=== PATIENT | female | born 1950 | race Two or more races ===

== ENCOUNTER 2016-08-19 09:00 | Emergency (ER) | payer MEDICARE, MEDICAID ==
[~2016-08-19] VITALS: Ht 162.6 cm; Wt 59.0 kg
[~2016-08-19 09:00] MED LIST: ALBUTEROL2.5 MG/3 M HHN; MOBIC15 MG ORAL; NORCO 5-325 TA1 EACH ORAL; PREDNISONE20 MG ORAL
[2016-08-19] MEDS ORDERED: Albuterol ud Inhalation HHN ONE (09:30)
[2016-08-19] MEDS ORDERED: Solu-MEDROL 125mg Inj IVP ONE (09:30)
[2016-08-19] MEDS ORDERED: Ipratropium 0.02% Inh Soln 2.5ml UD HHN ONE (09:30)
[2016-08-19 09:38] LABS: EOSINOPHILS % (AUTO) 1.3 % (0.0-3.0); MEAN CORPUSCULAR HEMOGLOBIN 29.6 PG (27.0-31.0); MEAN CORPUSCULAR HGB CONC 32.7 G/DL (32.0-36.0); MEAN CORPUSCULAR VOLUME 91 FL (80-99); MEAN PLATELET VOLUME 11.5 FL (6.5-10.1); MONOCYTES % (AUTO) 7.1 % (1.0-10.0); NEUTROPHILS % (AUTO) 76.6 % (45.0-75.0); PLATELET COUNT 144 K/UL (150-450); WHITE BLOOD COUNT 8.9 K/UL (4.8-10.8)
[2016-08-19] MEDS ORDERED: Ketorolac 30mg Inj IV ONE (09:45)
[2016-08-19] MEDS: Acetaminophen 500mg (ES) tab ORAL ONE ×2 (09:45→10:50)
[2016-08-19 09:50] LABS: ALANINE AMINOTRANSFERASE 16 U/L (3-33); ALBUMIN/GLOBULIN RATIO 1.4 (1.0-2.7); ANION GAP 15 (5-15); ASPARTATE AMINO TRANSFERASE 33 U/L (5-40); CALCIUM 9.1 mg/dL (8.6-10.2); CARBON DIOXIDE 25 mEQ/L (20-30); CHLORIDE 97 mEQ/L (98-107); CREATININE 0.8 mg/dL (0.5-0.9); GLOMERULAR FILTRATION RATE > 60 mL/min (>60); HEMOLYSIS 115; POTASSIUM 4.8 mEQ/L (3.4-4.9); SODIUM 137 mEQ/L (135-145); TOTAL PROTEIN 7.1 g/dL (6.6-8.7); TROPONIN I < 0.30 ng/mL (<=0.30)
[2016-08-19 09:54] VITALS: BP 133/65
[2016-08-19 10:00] LABS: CKMB 1.8 ng/mL (< 3.8)
[2016-08-19 10:21] VITALS: BP 113/58
[2016-08-19] MEDS ORDERED: Morphine Sulfate 4mg/ml Inj ONE (10:41)
[2016-08-19] MEDS ORDERED: PROMETHAZINE-D118 ML ORAL (10:50)
[2016-08-19] MEDS ORDERED: ALBUTEROL SULF8.5 GM INH (10:50)
[2016-08-19] MEDS ORDERED: ALBUTEROL2.5 MG/3 M HHN (10:50)
[2016-08-19] MEDS ORDERED: CYCLOBENZAPRINE10 MG ORAL (10:50)
[2016-08-19] MEDS ORDERED: PREDNISONE20 MG ORAL (10:50)
[2016-08-19 10:55] VITALS: BP 113/58
[2016-08-19] MEDS ORDERED: Morphine Sulfate 4mg/ml Inj IVP ONE (11:00)
--- NOTE | 2016-08-19 12:37 | Diagnostic Imaging Report ---
Indication: Chest pain Technique: One view of the chest Comparison: 07/13/2015 Findings: No acute infiltrates, effusions, or congestion. Tortuous calcified aorta. Normal heart size. Upper mediastinum unremarkable. No significant change Impression: No acute process.
--- NOTE | 2016-08-19 13:38 | Emergency Room Report ---
History of Present Illness General Chief Complaint: Upper Respiratory Illness Source: Patient Present Illness HPI 65-year-old female presents ED complaining of cough and bodyaches. States symptoms started 2 days ago. Was seen by her PCP and was prescribed Levaquin. States persistent cough and bodyaches. Pain is a 10 out of 10. Throbbing. Nonradiating. Notes cough with greenish sputum. Denies shortness of breath. Notes history of asthma. Denies sick contacts or recent travel. No aggravating or relieving factors. Denies any other associated symptoms Allergies: Coded Allergies: No Known Allergies (Unverified , 07/13/15) Patient History Past Medical History: none Past Surgical History: none Pertinent Family History: none Social History: Denies: alcohol use, drug use, smoking Now: No Immunizations: UTD Reviewed Nursing Documentation: PMH: Agreed, PSxH: Agreed Nursing Documentation-PMH Past Medical History: No Stated History Review of Systems All Other Systems: negative except mentioned in HPI Physical Exam Vital Signs Date Time Temp Pulse Resp B/P Pulse Ox O2 Delivery O2 Flow Rate FiO2 08/19/16 09:07 97.2 94 18 133/65 100 Room Air Sp02 EP Interpretation: reviewed, normal General Appearance: no apparent distress, alert, GCS 15, non-toxic Head: normocephalic Eyes: bilateral eye PERRL, bilateral eye normal inspection ENT: normal ENT inspection Neck: normal inspection Respiratory: wheezing Cardiovascular #1: regular rate, rhythm, no edema Gastrointestinal: normal inspection Rectal: deferred Genitourinary: no CVA tenderness Musculoskeletal: normal inspection Neurologic: alert, oriented x3, responsive, motor strength/tone normal, sensory intact, speech normal Psychiatric: normal inspection Skin: normal inspection Lymphatic: normal inspection Medical Decision Making Diagnostic Impression: Primary Impression: Bronchitis ER Course Hospital Course 65-year-old female presents to ED complaining of bodyaches, cough Differential diagnoses include: URI, bronchitis, asthma/COPD, pneumonia Clinical course Patient placed on stretcher. After initial history, physical exam reveals an elderly female in no acute distress. Bilateral TM unremarkable. No pharyngeal erythema. No tonsillar exudates. No lymphadenopathy. wheezing I ordered labs, IV fluids, Toradol, chest x-ray, nebulizer treatments Labs reviewed- no leukocytosis noted, hemoglobin/hematocrit stable, electrolytes okay Chest x-ray shows no acute process EKG- NSR, no acute c/w bronchitis. Per curb-65 criteria, patient does not require admission. Patient can be safely discharged to home with outpatient therapy. Patient agrees with plan. She will complete her Levaquin prescription Diagnosis - bronchitis Stable and discharged home with prescriptions for albuterol, prednisone, cough syrup. Instructed to followup with PMD. Return to ED if symptoms recur or worsen Labs Test 08/19/16 09:20 White Blood Count 8.9 K/UL (4.8-10.8) Red Blood Count 5.10 M/UL (4.20-5.40) Hemoglobin 15.1 G/DL (12.0-16.0) Hematocrit 46.2 % (37.0-47.0) Mean Corpuscular Volume 91 FL (80-99) Mean Corpuscular Hemoglobin 29.6 PG (27.0-31.0) Mean Corpuscular Hemoglobin Concent 32.7 G/DL (32.0-36.0) Red Cell Distribution Width 12.0 % (11.6-14.8) Platelet Count 144 K/UL (150-450) Mean Platelet Volume 11.5 FL (6.5-10.1) Neutrophils (%) (Auto) 76.6 % (45.0-75.0) Lymphocytes (%) (Auto) 14.0 % (20.0-45.0) Monocytes (%) (Auto) 7.1 % (1.0-10.0) Eosinophils (%) (Auto) 1.3 % (0.0-3.0) Basophils (%) (Auto) 1.0 % (0.0-2.0) Sodium Level 137 mEQ/L (135-145) Potassium Level 4.8 mEQ/L (3.4-4.9) Chloride Level 97 mEQ/L (98-107) Carbon Dioxide Level 25 mEQ/L (20-30) Anion Gap 15 (5-15) Blood Urea Nitrogen 14 mg/dL (7-23) Creatinine 0.8 mg/dL (0.5-0.9) Estimat Glomerular Filtration Rate > 60 mL/min (>60) Glucose Level 93 mg/dL (74-106) Lactic Acid Level 1.20 mmol/L (0.66-2.22) Calcium Level 9.1 mg/dL (8.6-10.2) Total Bilirubin 0.3 mg/dL (0.0-1.2) Aspartate Amino Transf (AST/SGOT) 33 U/L (5-40) Alanine Aminotransferase (ALT/SGPT) 16 U/L (3-33) Alkaline Phosphatase 46 U/L (35-104) Total Creatine Kinase 84 U/L (26-140) Creatine Kinase MB 1.8 ng/mL (< 3.8) Creatine Kinase MB Relative Index 2.1 Troponin I < 0.30 ng/mL (<=0.30) Pro-B-Type Natriuretic Peptide 83 pg/mL (0-125) Total Protein 7.1 g/dL (6.6-8.7) Albumin 4.2 g/dL (3.5-5.2) Globulin 2.9 g/dL Albumin/Globulin Ratio 1.4 (1.0-2.7) EKG Diagnostic Results Rate: normal Rhythm: NSR ST Segments: no acute changes ASA given to the pt in ED: No Rhythm Strip Diag. Results EP Interpretation: yes Rhythm: NSR, no PVC's, no ectopy Chest X-Ray Diagnostic Results EP Interpretation: No Findings: no consolidation, no effusion, no pneumothorax, no acute cardiopulmonary disease Number of Views: 1 Last Vital Signs Date Time Temp Pulse Resp B/P Pulse Ox O2 Delivery O2 Flow Rate FiO2 08/19/16 10:55 97.2 106 30 113/58 100 Room Air Status: improved Disposition: HOME, SELF-CARE Condition: Stable Scripts D-Methorphan Hb/Prometh Hcl* (PROMETHAZINE-DM SYRUP*) 118 Ml Syrup 5 ML ORAL Q4H Y for For Cough, #118 ML 0 Refills Prov: CHANDRIKA BACH M.D. 08/19/16 Prednisone* (PREDNISONE*) 20 Mg Tablet 40 MG ORAL DAILY, #10 TAB Prov: CHANDRIKA BACH M.D. 08/19/16 Cyclobenzaprine Hcl* (FLEXERIL*) 10 Mg Tablet 10 MG ORAL TID Y for Muscle Spasm, #20 TAB Prov: CHANDRIKA BACH M.D. 08/19/16 Albuterol Sulfate* (ALBUTEROL SULFATE HHN*) 2.5 Mg/3 Ml Vial.neb 2.5 MG HHN Q4H Y for Shortness of Breath, #25 VIAL Prov: CHANDRIKA BACH M.D. 08/19/16 Albuterol Sulfate* (ALBUTEROL SULFATE MDI*) 8.5 Gm Hfa.aer.ad 2 PUFF INH Q4H Y for cough/wheezing, #1 EA 0 Refills Prov: CHANDRIKA BACH M.D. 08/19/16 Referrals: NOT CHOSEN IPA/,REFERRING (PCP) Patient Instructions: Acute Bronchitis, Tosc-[id number] CHANDRIKA BACH M.D. Aug 19, 2016 13:38
--- NOTE | 2016-08-24 11:45 | Cardiology Report ---
APPROVED REPORT EKG Measurement Heart [id number] [place] [id number] Normal sinus rhythm Incomplete right bundle branch block Borderline ECG
== END 2016-08-19 10:56 | disposition home or self-care (01) ==
LOC: EMR 09:27
DX: J40 Bronchitis, not specified as acute or chronic (principal)
CPT/HCPCS: 36415; 71010; 80053; 82550; 82553; 83605; 83880; 84484; 85025; 87040; 93005; 94640; 94664; 96374; 96375; 99284; J1885; J2930; J7040

== ENCOUNTER 2018-01-09 12:52 | Outpatient (CLI) | payer MEDICARE ==
[~2018-01-09 12:52] MED LIST changes: +ALBUTEROL SULF8.5 GM INH; +CYCLOBENZAPRINE10 MG ORAL; +PROMETHAZINE-D118 ML ORAL
[2018-01-09 13:07] VITALS: BP 108/63
--- NOTE | 2018-01-09 13:28 | GI Progress Note ---
Assessment/Plan Problems: (1) GERD (gastroesophageal reflux disease) ICD Codes: K21.9 - Gastro-esophageal reflux disease without esophagitis SNOMED: 346557868 (2) Abdominal bloating ICD Codes: R14.0 - Abdominal distension (gaseous) SNOMED: 887814886 Status: stable Status Narrative Seen with Dr. Ramirez. Assessment/Plan EGD/colonoscopy to be scheduled 01/18/18. - CLD & (Nulytely/Suprep/Movi-Prep) prep instructions given and acknowledged by patient. - NPO @ [place] day prior procedure explained. Xifaxan trial post procedure decrease Elavil to 5mg labs drawn today >> CBC, BMP, coags RTC post procedural follow up The patient was seen and examined at bedside and all new and available data was reviewed in the patients chart. I agree with the above findings, impression and plan. (Patient seen earlier today. Signature stamp does not reflect patient encounter time.). - Joshua Ramirez MD Subjective Subjective abdominal pain abdominal bloating tried Elavil but d/c after making her sleepy Objective Last 24 Hour Vital Signs Date Time Temp Pulse Resp B/P (MAP) Pulse Ox O2 Delivery O2 Flow Rate FiO2 01/09/18 13:07 97.7 76 16 108/63 99 97.7 General Appearance: WD/WN, no apparent distress, alert Cardiovascular: normal rate Respiratory/Chest: normal breath sounds, no respiratory distress Abdominal Exam: normal bowel sounds, non tender, soft Extremities: normal range of motion, non-tender Italia Desai HIGH [employer]CHOOL SOC[employer] STUDIES TUTOR Jan 09, 2018 13:28
--- NOTE | 2018-01-09 15:57 | GI Initial Consult Note ---
History of Present Illness General Date patient seen: Jan 09, 2018 Time patient seen: 15:53 Reason for Consultation: ABDOMINAL PAIN Present Illness HPI 67 year old female patient whom presented at our clinic approximately 2 months ago with c/o of abdominal bloating. This patient stated she has been seen by other GI physicians whom has been unable to help her. States her bloating does at time gets worse after eating. Her last EGD/colonoscopy was over 5 years ago and she cannot recall the results at this time. Denies any N/V/D. Denies any unintentional weight loss or changes in dietary habits. No signs of abuse or neglect. Patient is not fall risk. She had refused GI procedures at that time , was given Elavil in which she stopped taking because it made her sleepy. She presents today with abdominal pain and abdominal bloating. Home Meds Active Scripts D-Methorphan Hb/Prometh Hcl* (PROMETHAZINE-DM SYRUP*) 118 Ml Syrup, 5 ML ORAL Q4H PRN for For Cough, #118 ML 0 Refills Prov:Fred Farrar MD 08/19/16 Prednisone* (PREDNISONE*) 20 Mg Tablet, 40 MG ORAL DAILY, #10 TAB Prov:Fred Farrar MD 08/19/16 Cyclobenzaprine Hcl* (FLEXERIL*) 10 Mg Tablet, 10 MG ORAL TID PRN for Muscle Spasm, #20 TAB Prov:Fred Farrar MD 08/19/16 Albuterol Sulfate* (ALBUTEROL SULFATE HHN*) 2.5 Mg/3 Ml Vial.neb, 2.5 MG HHN Q4H PRN for Shortness of Breath, #25 VIAL Prov:Fred Farrar MD 08/19/16 Albuterol Sulfate* (ALBUTEROL SULFATE MDI*) 8.5 Gm Hfa.aer.ad, 2 PUFF INH Q4H PRN for cough/wheezing, #1 EA 0 Refills Prov:Fred Farrar MD 08/19/16 Albuterol Sulfate* (ALBUTEROL SULFATE HHN*) 2.5 Mg/3 Ml Vial.neb, 2.5 MG HHN Q4H PRN for Shortness of Breath, #25 VIAL Prov:Vaughn Rae MD 07/13/15 Hydrocodone Bit/Acetaminophen 5-325* (NORCO 5-325*) 1 Each Tablet, 1 TAB ORAL Q6H PRN for For Pain, #10 TAB 0 Refills Prov:Vaughn Rae MD 07/13/15 Prednisone* (PREDNISONE*) 20 Mg Tablet, 40 MG ORAL DAILY, #10 TAB Prov:Vaughn Rae MD 07/13/15 Reported Medications Meloxicam* (MOBIC*) 15 Mg Tablet, 15 MG ORAL DAILY, #30 TAB 0 Refills 07/13/15 Med list reviewed/reconciled: Yes Allergies: Coded Allergies: No Known Allergies (Unverified , 07/13/15) Patient History History Provided By: Patient Past Medical History: GERD Pertinent Family History: none Social History: Denies: smoking, alcohol use, drug use, other Home Meds Active Scripts D-Methorphan Hb/Prometh Hcl* (PROMETHAZINE-DM SYRUP*) 118 Ml Syrup, 5 ML ORAL Q4H PRN for For Cough, #118 ML 0 Refills Prov:Fred Farrar MD 08/19/16 Cyclobenzaprine Hcl* (FLEXERIL*) 10 Mg Tablet, 10 MG ORAL TID PRN for Muscle Spasm, #20 TAB Prov:Fred Farrar MD 08/19/16 Albuterol Sulfate* (ALBUTEROL SULFATE MDI*) 8.5 Gm Hfa.aer.ad, 2 PUFF INH Q4H PRN for cough/wheezing, #1 EA 0 Refills Prov:Fred Farrar MD 08/19/16 Hydrocodone Bit/Acetaminophen 5-325* (NORCO 5-325*) 1 Each Tablet, 1 TAB ORAL Q6H PRN for For Pain, #10 TAB 0 Refills Prov:Vaughn Rae MD 07/13/15 Prednisone* (PREDNISONE*) 20 Mg Tablet, 40 MG ORAL DAILY, #10 TAB Prov:Vaughn Rae MD 07/13/15 Reported Medications Meloxicam* (MOBIC*) 15 Mg Tablet, 15 MG ORAL DAILY, #30 TAB 0 Refills 07/13/15 Allergies: Coded Allergies: No Known Allergies (Unverified , 07/13/15) Review of Systems All Other Systems: negative except mentioned in HPI Physical Exam Vital Signs Date Time Temp Pulse Resp B/P (MAP) Pulse Ox O2 Delivery O2 Flow Rate FiO2 01/09/18 13:07 97.7 76 16 108/63 99 97.7 Sp02 EP Interpretation: reviewed, normal General Appearance: well appearing, no apparent distress, alert Head: normocephalic EENT: PERRL/EOMI, normal ENT inspection Neck: supple Respiratory: normal breath sounds, no respiratory distress Cardiovascular: normal rate Gastrointestinal: normal inspection, non tender, soft, normal bowel sounds, non -distended Rectal: deferred Genitourinary: no CVA tenderness Musculoskeletal: normal inspection, back normal Neurologic: normal inspection, alert, oriented x3, responsive Psychiatric: normal inspection, judgement/insight normal, memory normal Skin: normal inspection, normal color, no rash, warm/dry, palpation normal, well hydrated Lymphatic: normal inspection, no adenopathy GI: Plan Problems: (1) Colonoscopy planned (2) GERD (gastroesophageal reflux disease) (3) Abdominal bloating Plan EGD/colonoscopy to be scheduled 01/18/18. - CLD & (Nulytely/Suprep/Movi-Prep) prep instructions given and acknowledged by patient. - NPO @ [place] day prior procedure explained. Xifaxan trial post procedure decrease Elavil to 5mg labs drawn today >> CBC, BMP, coags (results to be sent to [facility]) RTC post procedural follow up The patient was seen and examined at bedside and all new and available data was reviewed in the patients chart. I agree with the above findings, impression and plan. (Patient seen earlier today. Signature stamp does not reflect patient encounter time.). - MD Giselle HilliardPhoenix Indian Medical CenterRossana TIMING MACHINE OPERATOR Jan 09, 2018 15:57
[2018-01-09 17:07] LABS: BASOPHILS % (AUTO) 0.9 % (0.0-2.0); EOSINOPHILS % (AUTO) 2.5 % (0.0-3.0); HEMATOCRIT 39.8 % (37.0-47.0); HEMOGLOBIN 13.7 G/DL (12.0-16.0); LYMPHOCYTES % (AUTO) 37.6 % (20.0-45.0); MEAN CORPUSCULAR VOLUME 89 FL (80-99); MONOCYTES % (AUTO) 7.4 % (1.0-10.0); NEUTROPHILS % (AUTO) 51.6 % (45.0-75.0); PLATELET COUNT 154 K/UL (150-450); WHITE BLOOD COUNT 7.4 K/UL (4.8-10.8)
[2018-01-09 17:21] LABS: ALANINE AMINOTRANSFERASE 21 U/L (12-78); ALBUMIN 3.5 G/DL (3.4-5.0); ALBUMIN/GLOBULIN RATIO 0.9 (1.0-2.7); ALKALINE PHOSPHATASE 46 U/L (46-116); ANION GAP 7 mmol/L (5-15); ASPARTATE AMINO TRANSFERASE 19 U/L (15-37); BILIRUBIN,TOTAL 0.4 MG/DL (0.2-1.0); BLOOD UREA NITROGEN 16 mg/dL (7-18); CALCIUM 9.2 MG/DL (8.5-10.1); CARBON DIOXIDE 26 MMOL/L (21-32); CHLORIDE 105 MMOL/L (98-107); CREATININE 0.5 MG/DL (0.55-1.30); SODIUM 138 MMOL/L (136-145)
== END 2018-01-09 13:25 | disposition home or self-care (01) ==
LOC: PAN 12:52
DX: K21.9 Gastro-esophageal reflux disease without esophagitis (principal); R14.0 Abdominal distension (gaseous)
CPT/HCPCS: 36415; 80053; 85025; 85610; 85730; G0463; 99212

== ENCOUNTER 2018-01-24 09:08 | Outpatient (CLI) | payer MEDICARE ==
[2018-01-24 10:37] VITALS: BP 99/59
--- NOTE | 2018-01-24 10:43 | GI Progress Note ---
Assessment/Plan Problems: (1) GERD (gastroesophageal reflux disease) ICD Codes: K21.9 - Gastro-esophageal reflux disease without esophagitis SNOMED: 262501661 (2) Abdominal bloating ICD Codes: R14.0 - Abdominal distension (gaseous) SNOMED: 950620764 (3) Bronchitis ICD Codes: J40 - Bronchitis, not specified as acute or chronic SNOMED: 55228308 Status: stable Status Narrative Seen with Dr. Ramirez. Assessment/Plan EGD/colonoscopy reviewed with patient. - Gastritis - Possible raúl >> negative bx - hemorrhoids Bx negative for H. Pylori Trial VSL #3 RTC x 3 months repeat colonoscopy x 5 years The patient was seen and examined at bedside and all new and available data was reviewed in the patients chart. I agree with the above findings, impression and plan. (Patient seen earlier today. Signature stamp does not reflect patient encounter time.). - Joshua Ramirez MD Subjective Gastrointestinal/Abdominal: Reports: no symptoms Objective Last 24 Hour Vital Signs Date Time Temp Pulse Resp B/P (MAP) Pulse Ox O2 Delivery O2 Flow Rate FiO2 01/24/18 10:37 97.7 76 99/59 95 97.7 General Appearance: WD/WN, no apparent distress, alert Cardiovascular: normal rate Respiratory/Chest: normal breath sounds, no respiratory distress Abdominal Exam: normal bowel sounds, non tender, soft Extremities: normal range of motion, non-tender Italia Desai TRADING ANALYST Jan 24, 2018 10:43
== END 2018-01-24 09:38 | disposition home or self-care (01) ==
LOC: PAN 09:08
DX: K21.9 Gastro-esophageal reflux disease without esophagitis (principal); R14.0 Abdominal distension (gaseous); J40 Bronchitis, not specified as acute or chronic; K29.70 Gastritis, unspecified, without bleeding; K64.9 Unspecified hemorrhoids
CPT/HCPCS: 99212

== ENCOUNTER 2018-05-18 14:19 | Outpatient (CLI) | payer MEDICARE ==
[2018-05-18 14:29] VITALS: BP 104/54
--- NOTE | 2018-05-18 15:40 | GI Progress Note ---
Assessment/Plan Problems: (1) Abdominal bloating ICD Codes: R14.0 - Abdominal distension (gaseous) SNOMED: 595979455 (2) GERD (gastroesophageal reflux disease) ICD Codes: K21.9 - Gastro-esophageal reflux disease without esophagitis SNOMED: 887627320 Status: stable Status Narrative Discussed with Dr. Ramirez. Assessment/Plan Elavil 10 mg PO qHS Omeprazole 40mg RTC PRN The patient was seen and examined at bedside and all new and available data was reviewed in the patients chart. I agree with the above findings, impression and plan. (Patient seen earlier today. Signature stamp does not reflect patient encounter time.). - Joshua Ramirez MD Subjective Subjective c/o of abdominal bloating abdominal discomfort Objective Last 24 Hour Vital Signs Date Time Temp Pulse Resp B/P (MAP) Pulse Ox O2 Delivery O2 Flow Rate FiO2 05/18/18 14:29 97.4 77 16 104/54 95 General Appearance: WD/WN, no apparent distress, alert Cardiovascular: normal rate Respiratory/Chest: normal breath sounds, no respiratory distress Abdominal Exam: normal bowel sounds, non tender, soft Extremities: normal range of motion, non-tender Italia Desai UTILITY WORKER PRODUCTION May 18, 2018 15:40
== END 2018-05-18 14:49 | disposition home or self-care (01) ==
LOC: PAN 14:19
DX: R14.0 Abdominal distension (gaseous) (principal); K21.9 Gastro-esophageal reflux disease without esophagitis
CPT/HCPCS: 99212

== ENCOUNTER 2018-07-01 10:25 | Emergency (ER) | payer MEDICARE, MEDICAID ==
[~2018-07-01] VITALS: Ht 152.4 cm; Wt 61.2 kg
[2018-07-01 10:35] VITALS: BP 105/61
--- NOTE | 2018-07-01 10:45 | NUR ---
ED Nurse Note: Pt came in due to flu like symptoms x 2 weeks. Pt also c/o generalized body weakness and nasal congestion with yellowish nasal discharge. Takes Z blanche and levaquin at home. Afebrile in the ER 98.8. Pt is AAO x4, ambulatory, with non labored breathing. VSS.
--- NOTE | 2018-07-01 10:57 | Emergency Room Report ---
History of Present Illness General Chief Complaint: Flu Like Symptoms Source: Patient Present Illness HPI Patient presents with 3 weeks of illness. She took a course of Levaquin that didn't help. She's now taken 3 days of azithromycin. She's been complaining about nasal congestion and sinus pain. She's taking Singulair and states that that prevents her from wheezing and helps decrease her cough. She complaining about body aches and has had fevers and chills. She sometimes says she took Advil and other times she denies taking it. There's no nausea vomiting diarrhea or dysuria. Patient has no rashes. She did not receive a flu vaccination. She rates the pain in her head and body 10/10 aching and soreness. There is no neck stiffness. She denies chest pain. Patient has GERD and history of gastritis. She denies hypertension or diabetes. Allergies: Coded Allergies: No Known Allergies (Unverified , 07/13/15) Patient History Past Medical History: see triage record Social History: Denies: smoking Social History Narrative She drove herself here Last Menstrual Period: none Now: No Reviewed Nursing Documentation: PMH: Agreed; PSxH: Agreed Nursing Documentation-PMH Hx Cardiac Problems: No Hx Cancer: No Hx Gastrointestinal Problems: Yes Hx Neurological Problems: No Review of Systems All Other Systems: negative except mentioned in HPI Physical Exam Vital Signs Date Time Temp Pulse Resp B/P (MAP) Pulse Ox O2 Delivery O2 Flow Rate FiO2 07/01/18 10:35 98.1 99 18 105/61 95 Room Air Sp02 EP Interpretation: reviewed, normal General Appearance: well appearing, GCS 15, mild distress Head: normocephalic Eyes: bilateral eye normal inspection, bilateral eye PERRL ENT: hearing grossly normal, no angioedema, moist mucus membranes, other - Nasal congestion Neck: supple, no meningismus Respiratory: chest non-tender, lungs clear, normal breath sounds, other - post tussive wheezing Cardiovascular #1: regular rate, rhythm Cardiovascular #2: 2+ radial (R) Gastrointestinal: normal inspection, normal bowel sounds, non tender, no mass, non-distended Musculoskeletal: back normal, gait/station normal, normal range of motion Neurologic: alert, oriented x3, motor strength/tone normal, DTRs symmetric, sensory intact, speech normal, grossly normal Psychiatric: mood/affect normal, anxious Skin: normal inspection, warm/dry Medical Decision Making Diagnostic Impression: Primary Impression: Sinusitis Qualified Codes: J01.90 - Acute sinusitis, unspecified Additional Impression: Myalgia ER Course Patient presents with 3 weeks of upper respiratory symptomatology. Right now she is mainly complaining about facial pain and nasal congestion. Differential includes sinusitis, chronic sinusitis, viral syndrome, bronchitis amongst others including influenza. She's not getting better with antibiotics. Evaluation here will be with EKG and labs including influenza titer. The patient will receive a small fluid bolus, Afrin and Toradol. EKG with tachycardia no ischemic changes. CBC with normal white count. CMP with minimally elevated glucose. Urinalysis clear. Influenza swab negative Patient is improved with treatment and in less distress. She is still has discomfort but is improved. Treatment plan discussed with patient and son. Patient stable for outpatient observation and treatment. Laboratory Tests Test 07/01/18 10:30 07/01/18 10:45 White Blood Count 9.0 K/UL (4.8-10.8) Red Blood Count 4.83 M/UL (4.20-5.40) Hemoglobin 14.5 G/DL (12.0-16.0) Hematocrit 43.5 % (37.0-47.0) Mean Corpuscular Volume 90 FL (80-99) Mean Corpuscular Hemoglobin 29.9 PG (27.0-31.0) Mean Corpuscular Hemoglobin Concent 33.2 G/DL (32.0-36.0) Red Cell Distribution Width 11.6 % (11.6-14.8) Platelet Count 157 K/UL (150-450) Mean Platelet Volume 9.6 FL (6.5-10.1) Neutrophils (%) (Auto) 73.4 % (45.0-75.0) Lymphocytes (%) (Auto) 19.2 % (20.0-45.0) L Monocytes (%) (Auto) 5.9 % (1.0-10.0) Eosinophils (%) (Auto) 0.7 % (0.0-3.0) Basophils (%) (Auto) 0.7 % (0.0-2.0) Sodium Level 140 MMOL/L (136-145) Potassium Level 3.9 MMOL/L (3.5-5.1) Chloride Level 103 MMOL/L (98-107) Carbon Dioxide Level 26 MMOL/L (21-32) Anion Gap 11 mmol/L (5-15) Blood Urea Nitrogen 12 mg/dL (7-18) Creatinine 0.7 MG/DL (0.55-1.30) Estimate Glomerular Filtration Rate > 60 mL/min (>60) Glucose Level 127 MG/DL (74-106) H Calcium Level 9.2 MG/DL (8.5-10.1) Total Bilirubin 0.3 MG/DL (0.2-1.0) Aspartate Amino Transferase (AST) 16 U/L (15-37) Alanine Aminotransferase (ALT) 20 U/L (12-78) Alkaline Phosphatase 52 U/L (46-116) Total Creatine Kinase 58 U/L (26-308) Pro-B-Type Natriuretic Peptide 144 pg/mL (0-125) H Total Protein 7.4 G/DL (6.4-8.2) Albumin 3.3 G/DL (3.4-5.0) L Globulin 4.1 g/dL Albumin/Globulin Ratio 0.8 (1.0-2.7) L Urine Color Pale yellow Urine Appearance Clear Urine pH 5 (4.5-8.0) Urine Specific [place] 1.010 (1.005-1.035) Urine Protein Negative (NEGATIVE) Urine Glucose (UA) Negative (NEGATIVE) Urine Ketones Negative (NEGATIVE) Urine Blood 2+ (NEGATIVE) H Urine Nitrite Negative (NEGATIVE) Urine Bilirubin Negative (NEGATIVE) Urine Urobilinogen Normal MG/DL (0.0-1.0) Urine Leukocyte Esterase Negative (NEGATIVE) Urine RBC 0-2 /HPF (0 - 2) Urine WBC 0 /HPF (0 - 2) Urine Squamous Epithelial Cells None /LPF (NONE/OCC) Urine Bacteria None /HPF (NONE) Microbiology Date/Time Source Procedure Growth Status 07/01/18 11:00 Nasal Nares Influenza Types A,B Antigen (FLASH) - Final Complete EKG Diagnostic Results Rate: tachycardiac ST Segments: no acute changes Rhythm Strip Diag. Results EP Interpretation: yes Rhythm: no PVC's, no ectopy, other - ST Last Vital Signs Date Time Temp Pulse Resp B/P (MAP) Pulse Ox O2 Delivery O2 Flow Rate FiO2 07/01/18 12:30 98.7 78 20 115/76 98 Room Air Status: improved Disposition: HOME, SELF-CARE Condition: Improved Scripts Tramadol Hcl* (ULTRAM*) 50 Mg Tablet 50 MG ORAL Q6H PRN for For Pain, #6 TAB 0 Refills Prov: Jose Daniel Chowdhury MD 07/01/18 Acetaminophen (Tylenol) 325 Mg Tablet 650 MG ORAL Q6H PRN for Prn Pain/Headache/Temp > 101, #20 TAB 0 Refills Prov: Jose Daniel Chowdhury MD 07/01/18 Ibuprofen* (MOTRIN*) 600 Mg Tablet 600 MG ORAL Q6H PRN for For Pain, #20 TAB Prov: Jose Daniel Chowdhury MD 07/01/18 Mometasone Furoate (NASONEX) 17 Gm [place].pump 2 SPRAYS NASAL DAILY, #1 GM 0 Refills Prov: Jose Daniel Chowdhury MD 07/01/18 Jose Daniel Chowdhury MD Jul 01, 2018 10:57
[2018-07-01] MEDS ORDERED: Oxymetazoline 0.05% Na Spray 30ml NASAL ONE (11:00)
[2018-07-01] MEDS ORDERED: Ketorolac 30mg Inj IV ONE (11:00)
--- NOTE | 2018-07-01 11:15 | NUR ---
ED Nurse Note: Blood, urine and flu swab sent.
[2018-07-01 11:18] LABS: APPEARANCE,URINE CLEAR; BILIRUBIN, URINE NEGATIVE (NEGATIVE); COLOR,URINE PALE YELLOW; GLUCOSE, URINE (UA) NEGATIVE (NEGATIVE); KETONES,URINE NEGATIVE (NEGATIVE); LEUKOCYTE ESTERASE ,URINE NEGATIVE (NEGATIVE); NITRITE,URINE NEGATIVE (NEGATIVE); PH,URINE 5 (4.5-8.0); PROTEIN,URINE NEGATIVE (NEGATIVE); UROBILINOGEN,URINE NORMAL MG/DL (0.0-1.0)
[2018-07-01 11:20] LABS: BASOPHILS % (AUTO) 0.7 % (0.0-2.0); EOSINOPHILS % (AUTO) 0.7 % (0.0-3.0); HEMATOCRIT 43.5 % (37.0-47.0); HEMOGLOBIN 14.5 G/DL (12.0-16.0); LYMPHOCYTES % (AUTO) 19.2 % (20.0-45.0); MEAN CORPUSCULAR VOLUME 90 FL (80-99); MONOCYTES % (AUTO) 5.9 % (1.0-10.0); NEUTROPHILS % (AUTO) 73.4 % (45.0-75.0); PLATELET COUNT 157 K/UL (150-450); RED BLOOD COUNT 4.83 M/UL (4.20-5.40); RED CELL DISTRIBUTION WIDTH 11.6 % (11.6-14.8)
[2018-07-01 11:26] LABS: ANION GAP 11 mmol/L (5-15); BLOOD UREA NITROGEN 12 mg/dL (7-18); CALCIUM 9.2 MG/DL (8.5-10.1); CARBON DIOXIDE 26 MMOL/L (21-32); CHLORIDE 103 MMOL/L (98-107); CREATININE 0.7 MG/DL (0.55-1.30); POTASSIUM 3.9 MMOL/L (3.5-5.1); SODIUM 140 MMOL/L (136-145)
[2018-07-01 11:37] LABS: ALANINE AMINOTRANSFERASE 20 U/L (12-78); ALBUMIN 3.3 G/DL (3.4-5.0); ALBUMIN/GLOBULIN RATIO 0.8 (1.0-2.7); ALKALINE PHOSPHATASE 52 U/L (46-116); ASPARTATE AMINO TRANSFERASE 16 U/L (15-37); BILIRUBIN,TOTAL 0.3 MG/DL (0.2-1.0); CREATINE KINASE 58 U/L (26-308)
--- NOTE | 2018-07-01 12:00 | NUR ---
ED Nurse Note: Pt states that she feels better after the medication and nasal spray. VSS.
[2018-07-01 12:19] VITALS: BP 115/76
[2018-07-01] MEDS ORDERED: TRAMADOL HCL50 MG ORAL (12:23)
[2018-07-01] MEDS ORDERED: TYLENOL325 MG ORAL (12:23)
[2018-07-01] MEDS ORDERED: IBUPROFEN600 MG ORAL (12:23)
[2018-07-01] MEDS ORDERED: NASONEX17 GM NASAL (12:23)
[2018-07-01 12:30] VITALS: BP 115/76
--- NOTE | 2018-07-01 12:30 | NUR ---
ED Nurse Note: Pt cleared by ER MD for discharge. ACI/prescription given and explained to pt and verbalized understanding of teachings. All medical devices such as ID band/IV removed. Pt is AAO x4, ambulatory and left with all personal belongings. Pt left with her family member Son in law.
--- NOTE | 2018-07-02 11:09 | Cardiology Report ---
APPROVED REPORT EKG Measurement Heart [id number] [place] [id number] [id number] Sinus tachycardia Possible Left atrial enlargement Incomplete right bundle branch block Borderline ECG
== END 2018-07-01 12:30 | disposition home or self-care (01) ==
LOC: EMR 10:57
DX: J32.9 Chronic sinusitis, unspecified (principal); M79.10 Myalgia, unspecified site; R00.0 Tachycardia, unspecified
CPT/HCPCS: 36415; 80053; 81003; 82550; 83880; 85025; 86710; 93005; 99284; J1885; J7040

== ENCOUNTER 2018-08-02 13:17 | Outpatient (CLI) | payer MEDICARE, MEDICAID ==
[~2018-08-02 13:17] MED LIST changes: +IBUPROFEN600 MG ORAL; +NASONEX17 GM NASAL; +TRAMADOL HCL50 MG ORAL; +TYLENOL325 MG ORAL
--- NOTE | 2018-08-02 14:21 | General Progress Note ---
Assessment/Plan Problem List: (1) GERD (gastroesophageal reflux disease) ICD Codes: K21.9 - Gastro-esophageal reflux disease without esophagitis SNOMED: 111593713 (2) Bronchitis ICD Codes: J40 - Bronchitis, not specified as acute or chronic SNOMED: 93282318 (3) Abdominal bloating ICD Codes: R14.0 - Abdominal distension (gaseous) SNOMED: 279035482 Assessment/Plan ppi rtc prn Subjective ROS Limited/Unobtainable: Yes Allergies: Coded Allergies: No Known Allergies (Unverified , 07/13/15) Objective General Appearance: alert EENT: normal ENT inspection Neck: supple Cardiovascular: normal rate Respiratory/Chest: decreased breath sounds Abdomen: normal bowel sounds, non tender, soft Extremities: non-tender Joshua Ramirez MD Aug 02, 2018 14:21
[2018-08-02 15:33] VITALS: BP 109/65
== END 2018-08-02 15:17 | disposition home or self-care (01) ==
LOC: PAN 13:17
DX: K21.9 Gastro-esophageal reflux disease without esophagitis (principal); J40 Bronchitis, not specified as acute or chronic; R14.0 Abdominal distension (gaseous)
CPT/HCPCS: 99212